=== PATIENT | female | born 1970 | race Caucasian/White ===

== ENCOUNTER 2018-05-23 14:03 | Emergency (ER) | payer OTHER ==
[~2018-05-23] VITALS: Ht 170.2 cm; Wt 115.7 kg
[2018-05-23] MEDS ORDERED: AMLODIPINE BESYL5 MG (14:37)
[2018-05-23] MEDS ORDERED: FLONASE ALLERG9.9 ML (14:37)
[2018-05-23] MEDS ORDERED: HYDROCHLOROTHIA25 MG (14:37)
[2018-05-23] MEDS ORDERED: METFORMIN HCL500 MG (14:37)
[2018-05-23] MEDS ORDERED: TAMS0.4C (14:38)
[2018-05-23] MEDS ORDERED: AMOXICILLIN875 MG (14:38)
[2018-05-23] MEDS ORDERED: ZOFRAN ODT8 MG (14:39)
[2018-05-23] MEDS ORDERED: OXYCODONE HCL5 MG (14:39)
== END 2018-05-23 21:37 | disposition home or self-care (01) ==
LOC: ER 14:03
DX: N20.0 Calculus of kidney (principal)